=== PATIENT | male | born 1960 | race African-American/Black ===

== ENCOUNTER 2018-08-23 22:55 | Emergency (ER) | payer SELFPAY | END 2018-08-23 23:52 | disposition home or self-care (01) | LOC: ERS 22:55 | DX: S50.812A Abrasion of left forearm, initial encounter (principal); S50.811A Abrasion of right forearm, initial encounter; L30.9 Dermatitis, unspecified; F17.210 Nicotine dependence, cigarettes, uncomplicated; Z71.6 Tobacco abuse counseling; X58.XXXA Exposure to other specified factors, initial encounter | CPT/HCPCS: 99406 ==

== ENCOUNTER 2020-01-09 08:08 | Emergency (ER) | payer SELFPAY ==
[2020-01-09] MEDS ORDERED: Adacel (T-DAP) 0.5 ML SYRINGE ONE (08:34)
== END 2020-01-09 08:40 | disposition home or self-care (01) ==
LOC: ERS 08:08
DX: L02.414 Cutaneous abscess of left upper limb (principal)
CPT/HCPCS: 90471; 90715